=== PATIENT | female | born 1995 | race African-American/Black ===

== ENCOUNTER 2020-07-12 06:13 | Emergency (ER) | payer OTHER ==
[~2020-07-12] VITALS: Ht 165.1 cm; Wt 111.1 kg
[2020-07-12] MEDS ORDERED: ONDANSETRON HCL 4 MG ORAL DISINTEGRATING TAB PO STA (06:58)
[2020-07-12] MEDS ORDERED: ONDANSETRON HCL 4 MG ORAL DISINTEGRATING TAB ONE (07:08)
== END 2020-07-12 07:27 | disposition home or self-care (01) ==
LOC: FSED 07:03
DX: R11.2 Nausea with vomiting, unspecified (principal)
CPT/HCPCS: 99283; Q0162

== ENCOUNTER 2020-10-31 15:49 | Emergency (ER) | payer OTHER ==
[~2020-10-31] VITALS: Ht 167.6 cm; Wt 108.9 kg
[2020-10-31] MEDS ORDERED: ONDANSETRON HCL 4 MG ORAL DISINTEGRATING TAB PO ONE (16:15)
[2020-10-31] MEDS ORDERED: ONDANSETRON HCL 4 MG ORAL DISINTEGRATING TAB ONE (16:24)
[2020-10-31] MEDS ORDERED: PYRIDOXINE HCL25 MG PO (16:31)
[2020-10-31] MEDS ORDERED: UNISOM SLEEPMEL25 MG PO (16:31)
[2020-10-31] MEDS ORDERED: ONDANSETRON ODT4 MG PO (16:31)
[2020-10-31] MEDS ORDERED: PRENATAL TABLE1 EAC3 PO (16:31)
== END 2020-10-31 16:45 | disposition home or self-care (01) ==
LOC: FSED 15:52
DX: O21.9 Vomiting of pregnancy, unspecified (principal); Z3A.00 Weeks of gestation of pregnancy not specified
CPT/HCPCS: 99282; Q0162

== ENCOUNTER 2021-10-05 19:40 | Emergency (ER) | payer OTHER ==
[~2021-10-05] VITALS: Ht 167.6 cm; Wt 108.9 kg
[~2021-10-05 19:40] MED LIST: ONDANSETRON ODT4 MG PO; PRENATAL TABLE1 EAC3 PO; PYRIDOXINE HCL25 MG PO; UNISOM SLEEPMEL25 MG PO
[2021-10-05] MEDS ORDERED: IBUPROFEN 600 MG TAB ONE (20:33)
== END 2021-10-05 21:15 | disposition home or self-care (01) ==
LOC: FSED 20:02
DX: M79.604 Pain in right leg (principal); S80.11XA Contusion of right lower leg, initial encounter; W22.8XXA Striking against or struck by other objects, initial encounter; Y92.89 Other specified places as the place of occurrence of the external cause
CPT/HCPCS: 99283

== ENCOUNTER 2021-11-15 07:58 | Emergency (ER) | payer OTHER ==
[~2021-11-15] VITALS: Ht 167.6 cm; Wt 113.4 kg
[2021-11-15] MEDS ORDERED: CLEOCIN HCL300 MG PO (08:21)
[2021-11-15] MEDS ORDERED: ACETAMINOPHEN500 MG PO (08:21)
[2021-11-15] MEDS ORDERED: IBUPROFEN200 MG PO (08:21)
== END 2021-11-15 08:27 | disposition home or self-care (01) ==
LOC: FSED 08:17
DX: K08.89 Other specified disorders of teeth and supporting structures (principal)
CPT/HCPCS: 99282

== ENCOUNTER 2022-02-05 02:29 | Emergency (ER) | payer OTHER ==
[~2022-02-05] VITALS: Ht 167.6 cm; Wt 108.9 kg
[~2022-02-05 02:29] MED LIST changes: +ACETAMINOPHEN500 MG PO; +CLEOCIN HCL300 MG PO; +IBUPROFEN200 MG PO
[2022-02-05] MEDS ORDERED: BROMFED DM COU118 ML PO (03:11)
[2022-02-05] MEDS ORDERED: FLONASE ALLERG9.9 ML INH (03:11)
[2022-02-05 03:20] VITALS: BP 156/78
== END 2022-02-05 03:20 | disposition home or self-care (01) ==
LOC: FSED 03:11
DX: R50.9 Fever, unspecified (principal); J10.1 Influenza due to other identified influenza virus with other respiratory manifestations; R05.9 Cough, unspecified
CPT/HCPCS: 83518; 87400; 99282

== ENCOUNTER 2022-08-05 15:49 | Emergency (ER) | payer OTHER ==
[~2022-08-05] VITALS: Ht 165.1 cm; Wt 121.1 kg
[~2022-08-05 15:49] MED LIST changes: +BROMFED DM COU118 ML PO; +FLONASE ALLERG9.9 ML INH
[2022-08-05] MEDS ORDERED: IBUPROFEN 400 MG TAB PO ONE (16:00)
[2022-08-05] MEDS ORDERED: ACETAMINOPHEN 325 MG TAB PO ONE (16:00)
[2022-08-05] MEDS ORDERED: NAPROSYN500 MG PO (17:15)
== END 2022-08-05 17:34 | disposition home or self-care (01) ==
LOC: FSED 15:52
DX: S63.682A Other sprain of left thumb, initial encounter (principal); S60.222A Contusion of left hand, initial encounter; Y04.0XXA Assault by unarmed brawl or fight, initial encounter; Y92.89 Other specified places as the place of occurrence of the external cause
CPT/HCPCS: 99284

== ENCOUNTER 2022-08-10 21:26 | Emergency (ER) | payer OTHER ==
[~2022-08-10] VITALS: Ht 165.1 cm; Wt 121.1 kg
[~2022-08-10 21:26] MED LIST changes: +NAPROSYN500 MG PO
== END 2022-08-10 22:50 | disposition home or self-care (01) ==
LOC: FSED 22:04
DX: M79.642 Pain in left hand (principal); S60.222A Contusion of left hand, initial encounter; Y04.0XXA Assault by unarmed brawl or fight, initial encounter; Y92.89 Other specified places as the place of occurrence of the external cause
CPT/HCPCS: 99282

== ENCOUNTER 2024-02-23 12:32 | Emergency (ER) | payer OTHER ==
[~2024-02-23] VITALS: Ht 165.1 cm; Wt 122.0 kg
[~2024-02-23 12:32] MED LIST changes: +COLACE100 M1 PO; +CYCLOBENZAPRINE5 MG PO; +FERROUS SULFAT325 MG PO; +KETOROLAC TROME10 MG PO; +TYLENOL325 MG PO
[2024-02-23] MEDS ORDERED: TYLENOL325 MG PO (13:03)
[2024-02-23 13:07] VITALS: PULSE 74; RESP 18; TEMP 97.9
[2024-02-23 13:41] VITALS: BP 135/84; PULSE 84; RESP 18; TEMP 97.9; O2SAT 99
== END 2024-02-23 13:30 | disposition home or self-care (01) ==
LOC: FSED 12:50
DX: K08.89 Other specified disorders of teeth and supporting structures (principal); K02.9 Dental caries, unspecified; D64.9 Anemia, unspecified; Z87.19 Personal history of other diseases of the digestive system
CPT/HCPCS: 99283

== ENCOUNTER 2024-10-28 04:18 | Emergency (ER) | payer OTHER ==
[~2024-10-28] VITALS: Ht 167.6 cm; Wt 118.4 kg
[2024-10-28 04:20] VITALS: PULSE 56; RESP 16; TEMP 97.4
[2024-10-28] MEDS ORDERED: CLEOCIN HCL300 MG PO (04:42)
[2024-10-28] MEDS ORDERED: KETOROLAC TROME10 MG PO (04:42)
[2024-10-28 04:44] VITALS: BP 128/71; PULSE 56; RESP 16; TEMP 97.4; O2SAT 97
== END 2024-10-28 04:47 | disposition home or self-care (01) ==
LOC: FSED 04:21
DX: K08.89 Other specified disorders of teeth and supporting structures (principal); D64.9 Anemia, unspecified
CPT/HCPCS: 99283

== ENCOUNTER 2025-02-02 08:54 | Emergency (ER) | payer MEDICAID, OTHER ==
[~2025-02-02] VITALS: Ht 165.1 cm; Wt 116.1 kg
[2025-02-02] MEDS ORDERED: TRANEXAMIC ACI650 MG (09:13)
[2025-02-02] MEDS ORDERED: PROGESTERONE100 MG (09:13)
[2025-02-02] MEDS ORDERED: DICYCLOMINE HCL20 MG PO (09:13)
[2025-02-02 10:53] VITALS: PULSE 59; RESP 18; TEMP 97.5; O2SAT 100
[2025-02-02] MEDS: IBUPROFEN 600 MG TAB PO STA (11:05)
== END 2025-02-02 10:53 | disposition home or self-care (01) ==
LOC: FSED 09:02
DX: N92.0 Excessive and frequent menstruation with regular cycle (principal); D64.9 Anemia, unspecified; Z98.84 Bariatric surgery status; Z87.19 Personal history of other diseases of the digestive system
CPT/HCPCS: 81025; 99283